=== PATIENT | male | born 1965 | race Caucasian/White ===

== ENCOUNTER 2017-11-22 13:28 | Emergency (ER) | payer SELFPAY ==
[2017-11-22] MEDS ORDERED: Cyclobenzaprine TAB* 10 MG PO ONE (14:22)
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
[2017-11-22 15:58] VITALS: BP 121/76
== END 2017-11-22 15:54 | disposition home or self-care (01) ==
LOC: ED 13:28
DX: S16.1XXA Strain of muscle, fascia and tendon at neck level, initial encounter (principal); M54.2 Cervicalgia; V49.9XXA Car occupant (driver) (passenger) injured in unspecified traffic accident, initial encounter; Y93.9 Activity, unspecified; Y92.9 Unspecified place or not applicable
CPT/HCPCS: 72125; 99281; A9270-GY